=== PATIENT | male | born 1955 | race Hispanic/Latino ===

== ENCOUNTER 2022-06-04 12:02 | Emergency (ER) | payer SELFPAY ==
[2022-06-04] MEDS ORDERED: CYCLOBENZAPRINE 10 MG TAB ONE (13:00)
[2022-06-04] MEDS ORDERED: IBUPROFEN 200 MG TAB PO ONE (13:00)
[2022-06-04] MEDS ORDERED: IBUPROFEN 400 MG TAB ONE (13:00)
--- NOTE | 2022-06-04 13:37 | RAD REPORT ---
EXAM DESCRIPTION: RAD - Shoulder Left 2 View - 06/04/2022 1:28 pm CLINICAL HISTORY: PAIN COMPARISON: No comparisons FINDINGS/IMPRESSION: No acute fracture. No malalignment. No significant focal degenerative changes.
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
[2022-06-04 14:47] VITALS: TEMP 98.8; O2SAT 98
[2022-06-04 14:48] VITALS: BP 151/78
== END 2022-06-04 14:21 | disposition home or self-care (01) ==
LOC: ER 12:02
DX: M25.512 Pain in left shoulder (principal); M25.552 Pain in left hip; V49.40XA Driver injured in collision with unspecified motor vehicles in traffic accident, initial encounter; F17.210 Nicotine dependence, cigarettes, uncomplicated
CPT/HCPCS: 99283